=== PATIENT | male | born 1970 | race Caucasian/White ===

== ENCOUNTER 2022-05-29 07:54 | Day surgery (SDC) | payer BC ==
--- NOTE | 2022-05-28 13:00 | EKG ---
Test Date: 2022-05-26 Test Time: 15:38:44 Solar Photovoltaic Installer: LUCIE MEASUREMENT RESULTS: Intervals: Rate: 73 SC: 158 QRSD: 90 QT: 386 QTc: 425 [place]: P: 53 SC: 158 QRS: 20 T: 55 INTERPRETIVE STATEMENTS: Normal sinus rhythm Normal ECG No previous ECG available for comparison Electronically Signed On 05-28-22 12:59:35 ROLL REPAIRER by Abdi Ashley
[2022-05-29] MEDS ORDERED: Ringers Lactate 1,000 ML IV ONE (08:17)
[2022-05-29] MEDS ORDERED: OXYMETAZOLINE HCL 0.05% 15ML NAS ONE (08:59)
[2022-05-29] MEDS ORDERED: EPINEPHRINE/PF 1 MG/ML AMP ONE (08:59)
[2022-05-29] MEDS ORDERED: ROCURONIUM 50 MG/5 ML VIAL IV ONE (09:36)
[2022-05-29] MEDS ORDERED: dexAMETHasone 10 MG/ML VIAL ONE (09:36)
[2022-05-29] MEDS ORDERED: propofoL 200 MG/20 ML VIAL IV ONE (09:36)
[2022-05-29] MEDS ORDERED: MIDAZOLAM HCL 2 MG/2 ML INJ ONE (09:36)
[2022-05-29] MEDS ORDERED: FENTANYL CITR 100 MCG/2 ML ONE (09:36)
[2022-05-29] MEDS ORDERED: LIDOCAINE 2% MPF 5 ML VIAL ONE (09:37)
--- NOTE | 2022-05-29 11:23 | P.OP ---
Solar Project Coordination Specialist: NONE,NONE Preoperative diagnosis: Bilateral vocal polyp, deven edema, tobacco use Postoperative diagnosis: Same Primary procedure: Direct laryngoscopy with telescope and excision left vocal fold neoplasm Anesthesia: General Estimated blood loss: Less than 5 mL Specimen: Left vocal fold polyp Findings: Significant obstructive bilateral vocal fold polyps Operative Technique: After adequate plane of anesthesia, the patient was positioned with a shoulder roll and neck extended but supported. A rubber tooth guard is placed to the upper dentition. The Genaro Berci laryngoscope fitted with 15 degree telescope was used to perform a direct laryngoscopy. The image through the telescope was cloudy and despite cleaning, deep fogging and adjustments of camera focus, a clear image was not able to be obtained. The Genaro Berci was removed and a rigid anterior commissure laryngoscope was used and placed in suspension. A 0 degree rigid telescope was used to perform photodocumentation and provide amplified view of the larynx. The bilateral vocal folds were noted to be severely edematous and floppy with polypoid changes. Based on preoperative laryngoscopy in the clinic, decision was made to address the left vocal fold in this setting since the degree of polypoid change was greater during dynamic movement. The edge of the left true vocal fold polyp was grasped with a Duglas retractor and pulled medially. A straight, right angled and up angled scissor was used to remove the bulk of the polyp. An Afrin-soaked pledget was applied to the left vocal fold to aid in hemostasis. After several minutes the rigid telescope was again used to obtain more detailed view. There was a small amount of residual tissue noted near the anteriormost aspect of the vocal fold. This area was grasped with a small cup forceps and an up-cutting scissor was used to trim additional polypoid mucosa from this area. The mucosa from the inferior surface of the vocal fold was carefully elevated and laid across the cut surface of the vocal fold to form a mucosal flap and assist in healing. Afrin-soaked pledget was applied to the area for several minutes. After removal the area appeared hemostatic. The right vocal fold was not addressed during this operative setting in order to reduce the risk of glottic stenosis and scarring. Complications: None Implants: None Transferred to: Recovery Room (None) Condition: Good (Patient was placed on strict voice rest for at least 3 days with minimal voice use for 10 days. The patient was strongly cautioned against tobacco use and advised that continued or persistent tobacco use is likely to result in recurrence of his condition.)
[2022-05-29 11:30] VITALS: O2SAT 100
[2022-05-29 14:35] VITALS: BP 134/88; TEMP 97.1
== END 2022-05-29 12:19 | disposition home or self-care (01) ==
LOC: OR 07:54
PROVIDERS: ATTEND Otolaryngology
PROC: 0CBV8ZZ Excision of Left Vocal Cord, Via Natural or Artificial Opening Endoscopic (ICD-10-PCS; principal; 2022-05-29 09:30)
DX: J38.1 Polyp of vocal cord and larynx (principal); R49.0 Dysphonia; Z72.0 Tobacco use; R60.9 Edema, unspecified; I10 Essential (primary) hypertension; Z88.1 Allergy status to other antibiotic agents
CPT/HCPCS: 93005; 88305; 31541; J2704; J2001; J2250; J3010; J1100; J7120; J0171